=== PATIENT | male | born 1940 | race Caucasian/White ===

== ENCOUNTER 2017-11-12 07:14 | Day surgery (SDC) | payer BC, OTHER ==
[2017-11-12 08:13] VITALS: TEMP 98.2
--- NOTE | 2017-11-12 08:49 | PDANEPAE ---
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 Needs recombinant factor VIII prior to procedures. ANE Past Medical History - Cardiovascular History Hx Hypertension: No Hx Arrhythmias: No Hx Chest Pain: No Hx Coronary Artery / Peripheral Vascular Disease: No Hx CHF / Valvular Disease: No Hx Palpitations: No - Pulmonary History Hx COPD: No Hx Asthma/Reactive Airway Disease: No Hx Recent Upper Respiratory Infection: No Hx Oxygen in Use at Home: No Hx Sleep Apnea: No Sleep Apnea Screening Result - Last Documented: Positive - Neurologic History Hx Cerebrovascular Accident: No Hx Seizures: No Hx Dementia: No - Endocrine History Hx Diabetes: No Hypothyroid: No Hyperthyroid: No Obesity: yes, mild - Renal History Hx Renal Disorders: No - Liver History Hx Hepatic Disorders: No - Neurological & Psychiatric Hx Hx Neurological and Psychiatric Disorders: No - Cancer History Hx Cancer: No - Congenital Disorder History Hx Congenital Disorders: No - GI History Hx Gastrointestinal Disorders: Yes Gastrointestinal History Comment: Known colon polyps - Other Health History 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 - Chronic Pain History Chronic Pain: No - Surgical History Prior Surgeries: left knee replaced 2014. cataract removal left eye 2016 ANE Review of Systems Review of systems is: negative Review of Systems: - Exercise capacity Exercise capacity: >=4 METS METS (RN): 4 METS ANE Patient History - Allergies Allergies/Adverse Reactions: No Known Allergies Allergy (Verified 10/20/17 10:33) - Home Medications Home medications: home medication list seen and reviewed - NPO status NPO Status: no food or drink >8 hours NPO Since - Liquids (Date): 11/11/17 NPO Since - Liquids (Time): 23:00 NPO Since - Solids (Date): 11/10/17 NPO Since - Solids (Time): 18:00 - Anes Hx Anes Hx: no prior problems - Smoking Hx Smoking Status: Never smoked Marijuana use: No - Alcohol Use Alcohol Use: None - Family Anes Hx Family Anes Hx: neg - N/A Family Hx Anesthesia Complications: none ANE Labs/Vital Signs - Vital Signs Vital Signs: reviewed preoperatively; see RN documention for details Blood Pressure: 127/82 Heart Rate: 101 Respiratory Rate: 16 O2 Sat (%): 92 Height: 170.18 cm Weight: 104.326 kg ANE Physical Exam - Airway Neck exam: FROM Mouth exam: normal dental/mouth exam - Pulmonary Pulmonary: no respiratory distress - Cardiovascular Cardiovascular: regular rate and rhythym - ASA Status ASA Status: III ANE Anesthesia Plan Anesthesia Plan: GA with mask Total IV Anesthesia: Yes
[2017-11-12] MEDS ORDERED: LR 1,000 ML IV ONE (08:53)
[2017-11-12] MEDS ORDERED: [UNRECOGNIZED DRUG - MIXTURE] IV ONE (09:00)
[2017-11-12] MEDS ORDERED: PROPOFOL/EMULSION 500 MG/50 ML BOTTLE IV ONE ×2 (09:16→09:52)
--- NOTE | 2017-11-12 09:19 | PDGENHP ---
History and Physical History and Physical: CC: screening colonocopy, hx of colon polpys S: feeling well All: none Meds: see EMR PMHx: hemophilia SOCHx: no drugs FAMHx: no CRC ROS: negative PE: AF VSS no scleral icterus CTA RRR abd soft NTND no c/c/e neuro non focal no joint swelling IMP/RECS: 1. Colonoscopy - recombinant Factor infusion prior
--- NOTE | 2017-11-12 10:01 | GIREPORT ---
[facility] Surgical Services - Endoscopy Department Patient Name: René Harris Procedure Date: 11/12/2017 8:49 AM Patient Type: Outpatient Attending MD/ ER Physician: Duy Enriquez MD Procedure: Colonoscopy Indications: High risk colon cancer surveillance: Personal history of colonic polyps Providers: Duy Enriquez MD Medicines: Sedation Administered by an Anesthesia Professional, Recombinant blood factor was infused prior to exam. Complications: No immediate complications. Description of Procedure: After obtaining informed consent, the scope was passed under direct vis ion. Throughout the procedure, the patient's blood pressure, pulse, and oxyg en saturations were monitored continuously. The Colonoscope with irrigatio n channel was introduced through the anus and advanced to the cecum, identified by appendiceal orifice and ileocecal valve. The colonoscopy was performed without difficulty. The patient tolerated the procedure well. The quality of the bowel preparation was good. The ileocecal valve, appendi ceal orifice, and rectum were photographed. Findings: A 5 mm polyp was found in the cecum. The polyp was sessile. The polyp w as removed with a cold biopsy forceps. Resection and retrieval were comple te. A 7 mm polyp was found in the ascending colon. The polyp was sessile. T he polyp was removed with a hot snare. Resection and retrieval were comple te. A 7 mm polyp was found in the transverse colon. The polyp was sessile. The polyp was removed with a hot snare. Resection and retrieval were comple te. Multiple small-mouthed diverticula were found in the sigmoid colon. Estimated Blood Loss: Estimated blood loss: none. Estimated blood loss: none. Post Op Diagnosis: - One 5 mm polyp in the cecum, removed with a cold biopsy forceps. Rese cted and retrieved. - One 7 mm polyp in the ascending colon, removed with a hot snare. Rese cted and retrieved. - One 7 mm polyp in the transverse colon, removed with a hot snare. Res ected and retrieved. - Diverticulosis in the sigmoid colon. Recommendation: - Written discharge instructions were provided to the patient. - The signs and symptoms of potential delayed complications were discus sed with the patient. - Patient has a contact number available for emergencies. - Return to normal activities tomorrow. - Resume previous diet. - Continue present medications. - Await pathology results. - Repeat colonoscopy for surveillance based on pathology results. - If the pathology report reveals adenomatous tissue, in all samples, t hen repeat the colonoscopy for surveillance in 3 years. - If the pathology report reveals adenomatous tissue, in one or two ricky yps, then repeat the colonoscopy for surveillance in 5 years. - If the pathology report is benign, in all samples, then repeat colono scopy for surveillance in 5 years. Attending Participation: I personally performed the entire procedure. Duy Enriquez MD Duy Enriquez MD 11/12/2017 10:01:13 AM This report has been signed electronicallyDuy Enriquez MD Number of Addenda: 0 Note Initiated On: 11/12/2017 8:49 AM Total Procedure Duration Time 0 hours 28 minutes 13 seconds [email or web address]
[2017-11-12 11:07] VITALS: PULSE 79; RESP 14
[2017-11-12 11:37] VITALS: BP 143/88; O2SAT 93
--- NOTE | 2017-11-12 16:25 | POSTANESTH ---
Post Anesthetic Evaluation Cardiovascular Status: Normal, Stable, Similar to Pre-Op Cond Respiratory Status: Normal, Stable, Similar to Pre-op Cond. Level of Consciousness/Mental Status: Can Participate in Eval, Alert and Oriented Pain Control: Adequate, Prn Tx Ordered Nausea/Vomiting Control: Adequate, Prn Tx Ordered Complications Possibly Related to Anesthesia: None Noted
== END 2017-11-12 12:14 | disposition home or self-care (01) ==
LOC: FSGY 07:14
PROVIDERS: ATTEND Internal Medicine Gastroenterology
PROC: 30233V1 Transfusion of Nonautologous Antihemophilic Factors into Peripheral Vein, Percutaneous Approach (ICD-10-PCS; 2017-11-12)
PROC: 0DBK8ZX Excision of Ascending Colon, Via Natural or Artificial Opening Endoscopic, Diagnostic (ICD-10-PCS; principal; 2017-11-12 09:00)
PROC: 0DBH8ZX Excision of Cecum, Via Natural or Artificial Opening Endoscopic, Diagnostic (ICD-10-PCS; principal; 2017-11-12 09:00)
PROC: 0DBL8ZX Excision of Transverse Colon, Via Natural or Artificial Opening Endoscopic, Diagnostic (ICD-10-PCS; principal; 2017-11-12 09:00)
DX: Z12.11 Encounter for screening for malignant neoplasm of colon (principal); D12.0 Benign neoplasm of cecum; D12.2 Benign neoplasm of ascending colon; D12.3 Benign neoplasm of transverse colon; K57.30 Diverticulosis of large intestine without perforation or abscess without bleeding; D66 Hereditary factor VIII deficiency; Z86.010 Personal history of colon polyps; Z96.652 Presence of left artificial knee joint
CPT/HCPCS: J2704; J7187